=== PATIENT | male | born 1995 | race Hispanic/Latino ===

== ENCOUNTER → 2023-09-18 | Emergency (ER) | payer BC ==
[~2023-09-18] VITALS: Ht 177.8 cm; Wt 112.0 kg
[2023-09-18 19:57] VITALS: BP 159/91; PULSE 83; RESP 18; O2SAT 100
== END ==
LOC: EDH 19:14
DX: T16.1XXA Foreign body in right ear, initial encounter (principal); X58.XXXA Exposure to other specified factors, initial encounter; Y93.89 Activity, other specified; Y92.89 Other specified places as the place of occurrence of the external cause; Y99.8 Other external cause status
CPT/HCPCS: 69200; 99282